=== PATIENT | male | born 1990 | race Caucasian/White ===

== ENCOUNTER 2019-08-10 12:14 | Emergency (ER) | payer SELFPAY ==
[2019-08-10 12:23] VITALS: BP 140/91
[2019-08-10] MEDS ORDERED: TETANUS,DIPH,PERTUSS(ACELL) VACCINE 0.5 ML SYRINGE IM ONE (13:07)
--- NOTE | 2019-08-10 13:07 | Emergency Department Report ---
Blank Doc - Documentation Documentation: 28-year-old male that presents with right middle finger lac. This initial assessment/diagnostic orders/clinical plan/treatment(s) is/are subject to change based on patient's health status, clinical progression and re- assessment by fellow clinical providers in the ED. Further treatment and workup at subsequent clinical providers discretion. Patient/guardians urged not to elope from the ED as their condition may be serious if not clinically assessed and managed. Initial orders include: 1- Patient sent to [facility] for further evaluation and treatment 2- tetanus shot needed
== END 2019-08-10 15:44 | disposition left against medical advice (07) ==
LOC: ED 12:14
DX: M79.644 Pain in right finger(s) (principal); Z53.21 Procedure and treatment not carried out due to patient leaving prior to being seen by health care provider